=== PATIENT | male | born 1955 | race African-American/Black ===

== ENCOUNTER 2016-11-07 15:31 | Emergency (ER) | payer OTHER ==
[2016-11-07 15:37] VITALS: BP 168/115
--- NOTE | 2016-11-07 16:05 | ED Physician Documentation ---
PD HPI MALE - Stated complaint Stated Complaint: MALE - Chief complaint Chief Complaint: General - History obtained from History obtained from: Patient - History of Present Illness Timing - onset: How many days ago (3) Timing - duration: Days (3) Timing - details: Gradual onset, Still present Associated symptoms: Genital sore / lesion. No: Dysuria, Urinary frequency, Discharge, Testiclar pain, Scrotal swelling, Abdominal pain PD HPI MALE CONTRIB FACTORS: Sexually active Similar symptoms before: Has not had sx before Recently seen: Not recently seen - Additional information Additional information: 61 y/o uncircumsized male has developed a redness to the glans and he noticed this 3 days ago and he has not had this previously Review of Systems Constitutional: denies: Fever Eyes: denies: Decreased vision Ears: denies: Ear pain Nose: denies: Congestion Throat: denies: Sore throat Respiratory: denies: Dyspnea, Cough GI: denies: Abdominal Pain, Nausea, Vomiting : denies: Dysuria, Frequency, Discharge, Testicular pain, Testicular mass Skin: denies: Rash Musculoskeletal: denies: Neck pain, Back pain, Extremity pain Neurologic: denies: Generalized weakness, Focal weakness, Numbness Endocrine: denies: Polydypsia, Polyuria PD PAST MEDICAL HISTORY - Past Medical History Cardiovascular: None Respiratory: None Neuro: None Endocrine/Autoimmune: None GI: Hemorrhoids : None HEENT: Chronic vision loss Psych: None Musculoskeletal: None Derm: None - Past Surgical History Past Surgical History: No General: Colonoscopy - Present Medications Home Medications: Ambulatory Orders Medication Instructions Recorded Confirmed Clotrimazole 1 gm TP BID #45 gm 11/07/16 - Allergies Allergies/Adverse Reactions: Allergies Allergy/AdvReac Type Severity Reaction Status Date / Time No Known Drug Allergies Allergy Verified 10/21/15 09:29 - Social History Does the pt smoke?: No Smoking Status: Former smoker Does the pt drink ETOH?: Yes Does the pt have substance abuse?: No - Immunizations Immunizations are current?: Yes PD ED PE NORMAL - Vitals Vital signs reviewed: Yes (hypertensive ) - General General: Alert and oriented X 3, No acute distress, Well developed/nourished - HEENT HEENT: Atraumatic, PERRL - Respiratory Respiratory: No respiratory distress - Male Male : Other (The foreskin is easily retracted and there is erythema surrounding the base of the glans. There are no ulcerations, no significant swelling no drainage. ) - Derm Derm: Normal color, Warm and dry, No rash - Extremities Extremities: No deformity, No edema - Neuro Neuro: No motor deficit, No sensory deficit - Psych Psych: Normal mood, Normal affect Results - Vitals Vitals: Vital Signs - 24 hr 11/07/16 15:35 Temperature 35.8 C L Heart Rate 77 Respiratory 16 Rate Blood Pressure 168/115 H O2 Saturation 97 Oxygen O2 Source Room air - Labs Labs: Laboratory Tests 11/07/16 16:10 POC Whole Bld Glucose 83 PD MEDICAL DECISION MAKING - ED course Complexity details: considered differential, d/w patient ED course: looks like balanitis and we will treat and obtain a fingerstick glucose. Departure - Departure Disposition: 01 Home, Self Care Clinical Impression: Balanitis Condition: Stable Instructions: ED Balanitis Follow-Up: [facility] [Provider Group] Prescriptions: Clotrimazole 1 gm TP BID #45 gm Comments: Today in the Emergency Department your blood pressure was elevated. This can happen from the stress of the visit itself, from a current illness or circumstance or from uncontrolled hypertension. If you take blood pressure medications take your usual mediations, have your blood pressure re-checked in an appropriate setting and follow up any elevation with your primary care doctor.
== END 2016-11-07 16:36 | disposition home or self-care (01) ==
LOC: ED 15:31
DX: N48.1 Balanitis (principal); R03.0 Elevated blood-pressure reading, without diagnosis of hypertension; Z87.891 Personal history of nicotine dependence
CPT/HCPCS: 99283

== ENCOUNTER 2017-11-20 13:57 | Outpatient (CLI) | payer OTHER ==
[2017-11-20] MEDS ORDERED: GADOBUTROL 15 MMOL/15 ML VIAL ONE (14:29)
== END 2017-11-20 13:58 | disposition home or self-care (01) ==
LOC: LAB 13:57 → DI 13:58
PROVIDERS: ATTEND Internal Medicine
DX: R93.0 Abnormal findings on diagnostic imaging of skull and head, not elsewhere classified (principal)
CPT/HCPCS: 36415; 70553; 82565

== ENCOUNTER 2018-06-11 17:19 | Outpatient (CLI) | payer OTHER | END 2018-06-11 17:20 | disposition critical access hospital (66) | LOC: EMS 17:19 | PROVIDERS: ATTEND Surgery | DX: R41.82 Altered mental status, unspecified (principal) | CPT/HCPCS: A0425; A0427 ==

== ENCOUNTER 2018-06-11 17:32 | Emergency (ER) | payer OTHER ==
--- NOTE | 2018-06-11 17:45 | ED Physician Documentation ---
PD HPI SEIZURE - Stated complaint Stated Complaint: POSS STROKE - Chief complaint Chief Complaint: Neuro - History obtained from History obtained from: Patient, EMS - History of Present Illness Timing - onset: How many hours ago (1) Witnessed: Witnessed Number of seizures: Single, Unobtainable Description of seizure activity: Generalized, Tonic clonic Injury during seizure: Other (L shoulder pain) Pain level max: 6 Pain level now: 3 Associated symptoms: Unknown History of seizures: First seizure Contributing factors: No: Off meds, Out of meds, Changed meds, Low blood sugar, Head injury, Substance abuse, EtOH withdrawal, Benzo withdrawal, Overdose, Fever, Sleep deprivation Similar symptoms before: Has not had sx before Recently seen: Not recently seen - Additional information Additional information: also trouble moving L arm and leg since the event, seems to be improving now. Review of Systems Ten Systems: 10 systems reviewed and negative Constitutional: denies: Fever, Chills Ears: denies: Ear pain Nose: denies: Rhinorrhea / runny nose, Congestion Cardiac: denies: Chest pain / pressure Respiratory: denies: Cough GI: denies: Abdominal Pain, Nausea, Vomiting, Diarrhea Skin: denies: Rash Musculoskeletal: denies: Neck pain, Back pain Neurologic: denies: Headache PD PAST MEDICAL HISTORY - Past Medical History Cardiovascular: None Respiratory: None Endocrine/Autoimmune: None GI: Hemorrhoids : None HEENT: Chronic vision loss Psych: None Musculoskeletal: None Derm: None - Past Surgical History Past Surgical History: No General: Colonoscopy - Present Medications Home Medications: Ambulatory Orders Medication Instructions Recorded Confirmed Hydrocodone/Acetaminophen 1 - 2 each PO Q6H PRN #14 tablet 06/11/18 [Hydrocodon-Acetaminophen 5-325] Levetiracetam [Keppra] 500 mg PO BID #60 tablet 06/11/18 - Allergies Allergies/Adverse Reactions: Allergies Allergy/AdvReac Type Severity Reaction Status Date / Time No Known Drug Allergies Allergy Verified 06/11/18 17:38 - Social History Does the pt smoke?: No Smoking Status: Former smoker Does the pt drink ETOH?: Yes Does the pt have substance abuse?: No - Immunizations Immunizations are current?: Yes PD ED PE NORMAL - Vitals Vital signs reviewed: Yes - General General: Alert and oriented X 3, No acute distress, Well developed/nourished - HEENT HEENT: PERRL, Moist mucous membranes - Neck Neck: Supple, no meningeal sign, No bony TTP - Cardiac Cardiac: RRR, Strong equal pulses - Respiratory Respiratory: No respiratory distress, Clear bilaterally - Abdomen Abdomen: Soft, Non tender, Non distended - Back Back: No spinal TTP - Derm Derm: Warm and dry - Extremities Extremities: Other (Tender palpation over the left shoulder. No gross deformity. Neurovascularly intact) - Neuro Neuro: Alert and oriented X 3, sanitary chemist 2-12 intact, No motor deficit, No sensory deficit, Normal speech Eye Opening: Spontaneous Motor: Obeys Commands Verbal: Oriented GCS Score: 15 - Psych Psych: Normal mood, Normal affect Results - Vitals Vitals: Vital Signs - 24 hr 06/11/18 06/11/18 06/11/18 17:32 18:05 19:24 Temperature 36.4 C L Heart Rate 107 H 105 H 106 H Respiratory 18 27 H 18 Rate Blood Pressure 118/76 119/74 136/76 H O2 Saturation 93 94 94 06/11/18 06/11/18 06/11/18 20:58 21:00 21:29 Temperature Heart Rate 115 H 111 H 108 H Respiratory 16 16 8 L Rate Blood Pressure 129/76 129/76 115/62 O2 Saturation 96 96 92 06/11/18 06/11/18 06/11/18 21:37 21:38 22:25 Temperature Heart Rate 110 H 129 H Respiratory 17 18 Rate Blood Pressure 104/76 150/93 H O2 Saturation 98 100 96 06/11/18 22:56 Temperature Heart Rate 108 H Respiratory Rate Blood Pressure O2 Saturation 92 Oxygen O2 Source Room air Oxygen Flow Rate 2 - Labs Labs: Laboratory Tests 06/11/18 06/11/18 17:46 17:46 WBC 9.2 RBC 5.19 Hgb 14.3 Hct 44.7 MCV 86.0 MCH 27.6 MCHC 32.0 RDW 14.4 Plt Count 234 MPV 8.4 Neut # (Auto) Not Reportable Lymph # (Auto) Not Reportable [place] # (Auto) Not Reportable Eos # (Auto) Not Reportable Baso # (Auto) Not Reportable Absolute Nucleated RBC Not Reportable Total Counted 100 Band Neuts % (Manual) 3 Abnorm Lymph % (Manual) 0 Nucleated RBC % Not Reportable Neutrophils # (Manual) 4.0 Lymphocytes # (Manual) 4.6 H Monocytes # (Manual) 0.4 Eosinophils # (Manual) 0.3 Basophils # (Manual) 0.0 Differential Comment MANUAL DIFFERENTIAL Manual Slide Review Indicated WBC Morphology NORMAL APPEARANCE Platelet Estimate NORMAL (130-450,000) Platelet Morphology NORMAL APPEARANCE RBC Morph Micro Appear NORMAL APPEARANCE Sodium 138 Potassium 3.6 Chloride 101 Carbon Dioxide 23 Anion Gap 14.0 H BUN 13 Creatinine 1.2 Estimated GFR (MDRD) 75 L Glucose 127 H Calcium 9.1 Total Bilirubin 0.4 AST 48 H ALT 31 Alkaline Phosphatase 79 Total Protein 7.2 Albumin 3.8 Globulin 3.4 Albumin/Globulin Ratio 1.1 Lipase 31 Salicylates < 6.0 Acetaminophen < 10 L Ethyl Alcohol < 5.0 - Rads (name of study) Head CT Radiology: Prelim report reviewed, EMP read contemporaneously, See rad report (Chronic appearing encephalomalacia, possibly representing old infarct in the right parietal lobe. 2. Negative for hemorrhage, localizing mass-effect or edema. ) Left shoulder x-ray Radiology: Prelim report reviewed, EMP read contemporaneously, See rad report (. Probable posterior shoulder dislocation which can be confirmed with axillary view. 2. Comminuted impacted fracture medial left humerus head and possible posterior glenoid fracture. ) Left shoulder CT Radiology: Prelim report reviewed, EMP read contemporaneously, See rad report (Posterior subluxation of the humerus head with the severe comminuted impacted fracture medial humerus neck and anterior and medial humerus head from impacted posterior glenoid. Enter 1.6 cm displacement of medial humerus neck fracture fragments. 2. Comminuted fracture is noted of the posterior inferior glenoid involving a small portion of the articular surface. Multiple fracture fragments axillary recess. ) Left shoulder x-ray postreduction Radiology: Prelim report reviewed, EMP read contemporaneously, See rad report (Glenohumeral articulation appears normal on the provided views. The comminuted fractures of the humeral head and glenoid are less well visualized on this study. The acromioclavicular joint is intact. Soft tissue swelling about the left shoulder. ) Procedures - Reduction Body part reduced: Left, Shoulder Fracture or dislocation: Fracture dislocation Anesthesia: Hematoma block, Conscious sedation (propofol) Reduction aftercare: NV intact, Xray confirms reduction, Alignment improved, Sling, Patient tolerated well - Procedural sedation Sedation prep: Informed consent, Time out completed, Last meal (6hrs BOOTH USHER), PE performed, AHA 1 - healthy, IV O2 monitor, ET CO2 monitor, RT present Sedation medications: propofol, given by MD Patient status during sedation: Responds to tactile, Maintained airway, Hypoxia Sedation recovery: Recovered uneventfully, Back to baseline PD MEDICAL DECISION MAKING - ED course Complexity details: reviewed results, re-evaluated patient, considered differential, d/w patient, d/w b2b sales consultant ED course: 63-year-old male with a seizure today. Upon further history he states this is actually his second seizure, the first occurred last year. He was supposed to have an MRI in November of last year but never followed through. He has not been on any antiepileptic medications in the past. Has not seen a neurologist. I discussed the case with Dr. Benoit, orthopedics on-call who came and evaluated the patient and reduce the shoulder. I provided sedation for this. We then spoke with Dr. Jones at [facility], orthopedics who recommends follow-up pain clinic locally for repeat evaluation. Does not see any indication for transfer. Then discussed the case with Dr. Chandler, neurology at [facility] who recommends Keppra or Dilantin depending on the patient's preference for his seizures. Pain well controlled in the emergency department. Shoulder reduced. Patient counseled regarding signs and symptoms for which I believe and urgent re-evaluation would be necessary. Patient with good understanding of and agreement to plan and is comfortable going home at this time This document was made in part using voice recognition software. While efforts are made to proofread this document, sound alike and grammatical errors may occur. Departure - Departure Disposition: 01 Home, Self Care Clinical Impression: Recurrent seizures Posterior dislocation of shoulder joint Qualifiers: Encounter type: initial encounter Laterality: left Qualified Code(s): S43.022A - Posterior subluxation of left humerus, initial encounter Humeral head fracture Qualifiers: Encounter type: initial encounter Fracture type: closed Laterality: left Qualified Code(s): S42.292A - Other displaced fracture of upper end of left humerus, initial encounter for closed fracture Condition: Stable Instructions: ED Fx Upper Ext, ED Seizure Recurrent Follow-Up: Flaquito Pacheco MD [Primary Care Provider] - Within 1 week Latrice Benoit MD [Provider Admit Priv/Credential] - Within 1 week Prescriptions: Hydrocodone/Acetaminophen [Hydrocodon-Acetaminophen 5-325] 1 - 2 each PO Q6H PRN #14 tablet PRN Reason: pain Levetiracetam [Keppra] 500 mg PO BID #60 tablet Comments: Continue the Keppra as prescribed. Is important to follow-up with Dr. Pacheco for further evaluation and care. Will likely need an MRI and a neurology referral. I spoke with neurology at [facility]. I also spoke with orthopedics there. He will follow-up with Dr. Benoit in the orthopedic clinic for your shoulder. Do not drive until released by your doctor. Do not take baths, stick to showers. Do not drink alcohol or drive while on narcotic pain medicine. Note that many narcotic pain relievers also contain tylenol/acetaminophen. Please ensure that your total dose of acetaminophen from all sources does not exceed 3 grams (3000mg) per day. You may constipated on this medication, take a stool softener such as "Colace" twice a day while you are on it. Also recommend a [id number] laxative such as senna or MiraLAX any day that you do not have a bowel movement. If you received narcotic pain medication in the emergency department, do not drive or operate machinery for the next 24 hours. Discharge Date/Time: 06/11/18 23:15
[2018-06-11 17:49] LABS: BASOPHILS % (AUTO) 0.5 %; EOSINOPHILS % (AUTO) 2.9 %; HGB - HEMOGLOBIN 14.3 g/dL (14.0-18.0); LYMPHOCYTES % (AUTO) 39.1 %; MEAN CORPUSCULAR HEMOGLOBIN 27.6 pg (27.0-31.0); MEAN PLATELET VOLUME 8.4 fL (7.4-11.4); MONOCYTES % (AUTO) 6.4 %; NEUTROPHILS % (AUTO) 51.1 %; PLT - PLATELET COUNT 234 10^3/uL (130-450); RED BLOOD COUNT 5.19 10^6/uL (4.70-6.10); RED CELL DISTRIBUTION WIDTH 14.4 % (12.0-15.0); WHITE BLOOD COUNT 9.2 x10^3/uL (4.8-10.8)
[2018-06-11 17:53] LABS: ABNORMAL LYMPHS % (MANUAL) 0 %
[2018-06-11] MEDS ORDERED: HYDROmorphone 1 MG/ML CARPUJECT IVP STA ×2 (17:58→19:09)
--- NOTE | 2018-06-11 17:59 | CT Report ---
Reason: new onset seizure, L sided weakness. Procedure Date: 06/11/2018 Accession Number: [id number] / [id number] Procedure: CT - Head W/O Stroke Protocol CPT Code: FULL RESULT: EXAM: CT HEAD EXAM DATE: 06/11/2018 05:54 PM. CLINICAL HISTORY: New onset seizure, L sided weakness. COMPARISON: None. TECHNIQUE: Multiaxial CT images were obtained from the foramen magnum to the vertex. Reformats: Sagittal and coronal. IV contrast: None. In accordance with CT protocol optimization, one or more of the following dose reduction techniques were utilized for this exam: automated exposure control, adjustment of mA and/or KV based on patient size, or use of iterative reconstructive technique. FINDINGS: Parenchyma: There is a moderate sized area of chronic encephalomalacia in the right parietal lobe. More posteriorly, there is a small area of cortical hypodensity in the right parietal occipital lobe. Negative for intracranial hemorrhage. No midline shift or mass-effect. Extraaxial Spaces: No subdural or epidural collections identified. Ventricles: Normal in size and position. Sinuses and Orbits: There is mucosal thickening in the right frontal sinus. Other sinuses appear clear. Bones: No evidence of fracture or calvarial defect. Other: None. IMPRESSION: 1. 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 2. Negative for hemorrhage, localizing mass-effect or edema. RADIA The call report notification system was initiated by Dr. Ronaldo Reddy at 05:58 PM hrs on 06/11/2018.
[2018-06-11 18:04] LABS: ACETAMINOPHEN < 10 ug/mL (10-30); ALBUMIN 3.8 g/dL (3.2-5.5); ALBUMIN/GLOBULIN RATIO 1.1 (1.0-2.2); ALKALINE PHOSPHATASE 79 IU/L (42-121); ALT ALANINE AMINOTRANSFERASE 31 IU/L (10-60); AST ASPARTATE AMINOTRANSFERASE 48 IU/L (10-42); BILIRUBIN,TOTAL 0.4 mg/dL (0.2-1.0); BUN - BLOOD UREA NITROGEN 13 mg/dL (6-20); CALCIUM 9.1 mg/dL (8.5-10.3); CARBON DIOXIDE - CO2 23 mmol/L (21-32); CHLORIDE 101 mmol/L (101-111); CREATININE 1.2 mg/dL (0.6-1.2); GFR - MDRD 75 (>89); GLUCOSE 127 mg/dL (70-100); LIPASE 31 U/L (22-51); SALICYLATE < 6.0 mg/dL; SODIUM 138 mmol/L (135-145); TOTAL PROTEIN 7.2 g/dL (6.7-8.2)
[2018-06-11 18:07] LABS: BAND NEUTROPHILS % (MANUAL) 3 %; DIFFERENTIAL COMMENT MANUAL DIFFERENTIAL; EOSINOPHILS # (MANUAL) 0.3 10^3/uL (0-0.7); LYMPHOCYTES # (MANUAL) 4.6 10^3/uL (1.5-3.5); LYMPHOCYTES % (MANUAL) 50 %; MONOCYTES # (MANUAL) 0.4 10^3/uL (0.0-1.0); NEUTROPHILS % (MANUAL) 40 %; PLATELET ESTIMATE, MANUAL NORMAL (130-450,000) (NORMAL); PLATELET MORPHOLOGY NORMAL APPEARANCE (NORMAL); RBC MORPHOLOGY (MULTIPLE) NORMAL APPEARANCE (NORMAL)
--- NOTE | 2018-06-11 19:07 | XRAY Report ---
Reason: seizure, L shoulder pain Procedure Date: 06/11/2018 Accession Number: [id number] / [id number] Procedure: XR - Shoulder 3 View LT CPT Code: FULL RESULT: EXAM: LEFT SHOULDER RADIOGRAPHY EXAM DATE: 06/11/2018 06:35 PM. CLINICAL HISTORY: Seizure, L shoulder pain. COMPARISON: None. TECHNIQUE: 3 views. FINDINGS: Bones: Comminuted fracture medial left humerus head. Possible fracture posterior glenoid. Joints: Probable posterior shoulder dislocation. Acromioclavicular joint is within normal limits. Soft tissues: The visualized hemithorax is unremarkable. No soft tissue swelling. IMPRESSION: 1. Probable posterior shoulder dislocation which can be confirmed with axillary view. 2. Comminuted impacted fracture medial left humerus head and possible posterior glenoid fracture. RADIA
[2018-06-11] MEDS ORDERED: BUPIVACAINE 0.5% PF 10 ML VIAL SUBQ STA (20:35)
[2018-06-11] MEDS ORDERED: PROPOFOL 200 MG/20 ML VIAL IVP STA (20:36)
[2018-06-11] MEDS ORDERED: LIDOCAINE 2% 10 ML MDV ONE ×2 (20:39→20:48)
--- NOTE | 2018-06-11 20:49 | CT Report ---
Reason: L shoulder fracture/dislocation Procedure Date: 06/11/2018 Accession Number: [id number] / [id number] Procedure: CT - Upper Extremity Left W/O CPT Code: FULL RESULT: EXAM: LEFT SHOULDER CT WITHOUT CONTRAST EXAM DATE: 06/11/2018 08:13 PM. CLINICAL HISTORY: L shoulder fracture/dislocation. COMPARISON: SHOULDER 3 VIEW LT 06/11/2018 6:06 PM. TECHNIQUE: Thin-section axial images were acquired of the left shoulder without contrast. Post-processing: Coronal and sagittal reformats. Other: None. In accordance with CT protocol optimization, one or more of the following dose reduction techniques were utilized for this exam: automated exposure control, adjustment of mA and/or KV based on patient size, or use of iterative reconstructive technique. FINDINGS: Bones: Comminuted impacted fracture medial humerus head and medial proximal humerus surgical neck of the anterior 1.6 cm displacement of fracture fragments. Associated comminuted fracture small size of the posterior inferior glenoid or reverse [place] lesion. Multiple fracture fragments axillary recess. Joints: Normal. No large elbow effusion. No calcified loose bodies. Musculature: Normal. No fatty atrophy. Other: None. IMPRESSION: 1. Posterior subluxation of the humerus head with the severe comminuted impacted fracture medial humerus neck and anterior and medial humerus head from impacted posterior glenoid. Enter 1.6 cm displacement of medial humerus neck fracture fragments. 2. Comminuted fracture is noted of the posterior inferior glenoid involving a small portion of the articular surface. Multiple fracture fragments axillary recess. RADIA
[2018-06-11] MEDS ORDERED: levETIRAcetam 250 MG TABLET PO STA (22:17)
--- NOTE | 2018-06-11 22:25 | XRAY Report ---
Reason: s/p reduction Procedure Date: 06/11/2018 Accession Number: [id number] / [id number] Procedure: XR - Shoulder 2 View LT CPT Code: FULL RESULT: EXAM: LEFT SHOULDER RADIOGRAPHY EXAM DATE: 06/11/2018 09:49 PM. CLINICAL HISTORY: S/p reduction. COMPARISON: SHOULDER 3 VIEW LT 06/11/2018 6:06 PM UPPER EXTREMITY LEFT W/O 06/11/2018 7:59 PM. TECHNIQUE: 2 views. FINDINGS: Glenohumeral articulation appears normal on the provided views. The comminuted fractures of the humeral head and glenoid are less well visualized on this study. The acromioclavicular joint is intact. Soft tissue swelling about the left shoulder. IMPRESSION: As above. RADIA
[2018-06-11 22:28] VITALS: BP 150/93
--- NOTE | 2018-06-12 11:46 | CONSULTATION NOTE ---
DATE OF SERVICE: 06/11/2018 Physician: Latrice Benoit MD EMERGENCY ROOM ORTHOPEDIC CONSULTATION AND PROCEDURE NOTE REQUESTING PHYSICIAN: Lenard Salgado MD REASON FOR CONSULTATION: Left shoulder fracture dislocation. HISTORY OF PRESENT ILLNESS: Patient is a 63-year-old male with a brain disorder having caused a prior seizure about a year ago and then a repeat seizure on 06/11/2018, leading to the patient having a shoulder injury, fracture dislocation. He was transported from [place] to the emergency room and diagnosed by x-ray. The patient's prior medical history, allergies, prior surgeries are all documented in his emergency room record. The patient's pertinent orthopedic review of systems is that he has not had shoulder problems or pain, has never had shoulder surgery, with his prior seizure he did not have orthopedic problems. He is right-handed. His examination reveals a large man about 6 feet 2 or 3 inches and about 300 pounds. He does not grossly reveal his shoulder to be dislocated on exam; however, he is holding it at his side somewhat internally rotated and has pain and spasm if he attempts to move his shoulder. He does not have any neurologic complaints in his hand. His level of consciousness appeared normal, and he was alert and oriented, did not appear to be postictal even though he was, and movement of his shoulder was generally painful with a fullness posteriorly in the shoulder, but he is of such large size it was hard to discern that his shoulder was dislocated. His neuro exam was normal. X-rays were reviewed, and the patient had a severe fracture dislocation of his shoulder, with the majority of his humeral head dislocated posteriorly with a large indentation, and fracture in the humeral head representing about 40% of the head and some comminution at the inferior glenoid neck and in the neck of the humerus. IMPRESSION: The patient had a locked posterior dislocation that would require reduction with significant humeral head impaction fracture. DESCRIPTION OF PROCEDURE: The patient was consented for treatment and treatment was discussed with him. It was recommended he undergo a closed reduction. This was undertaken, infiltrating into his shoulder with a combination of Marcaine and lidocaine, approximately 16-18 mL total. This was injected anteriorly with a spinal needle into the shoulder, and it did yield relief of pain within 5 minutes. An initial attempt of traction and lateral abduction force on the shoulder did not affect a reduction with the patient awake, even though he was very cooperative. Therefore under Lenard Salgado's direction, a propofol conscious sedation anesthetic was given and a closed reduction maneuver performed once again with traction, arm in neutral rotation, with lateral pressure that allowed reduction of the shoulder to occur with the arm position then in external rotation and confirming reduction by exam and X-ray, and then the arm was splinted in a shoulder pillow splint with the arm held at the side, but in neutral to slight external rotation. The patient post reduction awakened and was in improved levels of pain, did not have neurologic deficit in his arm, and with time was able to stand with his splint in place and actually walk a little bit and not exhibit dizziness or any other problem. At this time, a conversation was had with the orthopedic program at [facility], and they declined transfer, stating that the patient would need to have neurologic consultation and stability of his brain seizure disorder before they would intervene and that he would have to remain in his abduction pillow until then, and even after explaining this may take weeks or a month, this did not deter their judgment, and therefore patient will remain in his pillow. He will be given appropriate Dilantin loading doses and will follow up in orthopedic clinic in 5 days. The patient is strictly told to maintain an abduction external rotation position with his brace and that he is at risk for redislocation, and he understands that he has done significant shoulder damage. TD: 06/12/2018 11:18 MTDD
== END 2018-06-11 23:15 | disposition home or self-care (01) ==
LOC: EDUNIT# → ED 17:32
DX: G40.909 Epilepsy, unspecified, not intractable, without status epilepticus (principal); S43.022A Posterior subluxation of left humerus, initial encounter; S42.292A Other displaced fracture of upper end of left humerus, initial encounter for closed fracture; S42.462A Displaced fracture of medial condyle of left humerus, initial encounter for closed fracture; S42.142A Displaced fracture of glenoid cavity of scapula, left shoulder, initial encounter for closed fracture; Z87.891 Personal history of nicotine dependence; X58.XXXA Exposure to other specified factors, initial encounter; Y93.9 Activity, unspecified; Y92.9 Unspecified place or not applicable
CPT/HCPCS: 23650; 36415; 70450; 73030; 73200; 80053; 80307; 80320; 80329; 83690; 85025; 94770; 96374; 96376; 99152; 99284; 99285; A9270; J1170

== ENCOUNTER 2018-06-15 18:37 | Emergency (ER) | payer OTHER ==
[2018-06-15 19:34] LABS: BASOPHILS # (AUTO) 0.1 10^3/uL (0.0-0.1); BASOPHILS % (AUTO) 1.3 %; EOSINOPHILS # (AUTO) 0.4 10^3/uL (0.0-0.7); EOSINOPHILS % (AUTO) 5.9 %; HGB - HEMOGLOBIN 13.3 g/dL (14.0-18.0); LYMPHOCYTES # (AUTO) 1.7 10^3/uL (1.5-3.5); LYMPHOCYTES % (AUTO) 27.9 %; MEAN CORPUSCULAR HEMOGLOBIN 27.1 pg (27.0-31.0); MEAN CORPUSCULAR HGB CONC 31.6 g/dL (32.0-36.0); MEAN CORPUSCULAR VOLUME 85.7 fL (80.0-94.0); MONOCYTES # (AUTO) 0.6 10^3/uL (0.0-1.0); MONOCYTES % (AUTO) 10.3 %; NEUTROPHILS # (AUTO) 3.3 10^3/uL (1.5-6.6); NEUTROPHILS % (AUTO) 54.6 %; PLT - PLATELET COUNT 226 10^3/uL (130-450); RED BLOOD COUNT 4.91 10^6/uL (4.70-6.10); RED CELL DISTRIBUTION WIDTH 14.1 % (12.0-15.0); WHITE BLOOD COUNT 6.1 x10^3/uL (4.8-10.8)
[2018-06-15 20:17] LABS: MUDS CUTOFF CONCENTRATIONS CUTOFF CONC BELOW:
[2018-06-15 20:28] LABS: AMPHETAMINE SCREEN,URINE NEGATIVE (NEGATIVE); BENZODIAZEPINES SCREEN, URINE NEGATIVE (NEGATIVE); COCAINE SCREEN URINE NEGATIVE (NEGATIVE); METHADONE SCREEN, URINE NEGATIVE (NEGATIVE); METHAMPHETAMINES SCREEN, URINE NEGATIVE (NEGATIVE); OPIATE SCREEN, URINE POSITIVE (NEGATIVE); OXYCODONE SCREEN, URINE NEGATIVE (NEGATIVE); PROPOXYPHENE SCREEN, URINE NEGATIVE (NEGATIVE); TRICYCLIC ANTIDEPRESSANT,URINE NEGATIVE (NEGATIVE)
[2018-06-15 20:32] LABS: INR 1.1 (0.8-1.2); PT - PROTHROMBIN TIME 12.7 secs (9.9-12.6)
--- NOTE | 2018-06-15 20:32 | Ultrasound Report ---
Reason: elevated LFTs Procedure Date: 06/15/2018 Accession Number: [id number] / [id number] Procedure: US - Abdomen Limited CPT Code: FULL RESULT: EXAM: ABDOMEN ULTRASOUND LIMITED, RUQ EXAM DATE: 06/15/2018 07:59 PM. CLINICAL HISTORY: Elevated LFTs. COMPARISON: None. TECHNIQUE: Real-time scanning was performed with static images obtained. FINDINGS: Exam is technically difficult due to patient body habitus, bowel gas, and echogenic liver. Liver: Diffusely echogenic. Normal size. 17.1 cm. Main portal vein flow: Hepatopetal. Gallbladder: Normal allowing for mild contraction. Patient last ate 3-4 hours ago. No stones, wall thickening, or sonographic Jean-Baptiste's sign. Biliary System: CBD measures 4 mm. No intrahepatic or extrahepatic ductal dilatation in visualized portions. Other: The visualized portions of the pancreatic body within normal limits. Right kidney within normal limits and measures 12.4 cm. There is a 17 x 13 x 15 mm cyst in the interpolar region of the kidney. IMPRESSION: 1.Moderate hepatic steatosis. 2. No cholelithiasis or cholecystitis. RADIA
[2018-06-15 20:43] LABS: ACETAMINOPHEN < 10 ug/mL (10-30); ALKALINE PHOSPHATASE 67 IU/L (42-121); ALT ALANINE AMINOTRANSFERASE 86 IU/L (10-60); AST ASPARTATE AMINOTRANSFERASE 204 IU/L (10-42); BILIRUBIN,TOTAL 0.9 mg/dL (0.2-1.0); BUN - BLOOD UREA NITROGEN 20 mg/dL (6-20); CALCIUM 9.2 mg/dL (8.5-10.3); CARBON DIOXIDE - CO2 25 mmol/L (21-32); CHLORIDE 104 mmol/L (101-111); GFR - MDRD 92 (>89); GLUCOSE 109 mg/dL (70-100); LIPASE 34 U/L (22-51); SODIUM 140 mmol/L (135-145)
[2018-06-15] MEDS ORDERED: oxyCODONE 5 MG TABLET PO STA (20:59)
--- NOTE | 2018-06-15 21:02 | ED Physician Documentation ---
History of Present Illness - Stated complaint Stated Complaint: SZ/LOWER BACK PX - Chief complaint Chief Complaint: Abd Pain - Additonal information Additional information: 63-year-old male was sent to the emergency department by a physician at [facility] for a ultrasound of his liver. The patient had routine outpatient lab work this week which showed slightly elevated liver function test and the patient was directed emergently to the emergency department for a ultrasound of his gallbladder and liver. The patient denies any abdominal discomfort or pain. The patient was recently started on Keppra secondary to a seizure he endured. The patient has no acute complaints or symptoms presently. No other associated symptoms. Review of Systems Constitutional: denies: Fever, Fatigue Eyes: denies: Discharge Ears: denies: Ear pain Nose: denies: Congestion Throat: denies: Sore throat Cardiac: denies: Chest pain / pressure GI: denies: Abdominal Pain, Nausea, Vomiting : denies: Dysuria Musculoskeletal: denies: Neck pain Neurologic: denies: Generalized weakness PD PAST MEDICAL HISTORY - Past Medical History Cardiovascular: None Respiratory: None Endocrine/Autoimmune: None GI: Hemorrhoids : None HEENT: Chronic vision loss Psych: None Musculoskeletal: None Derm: None - Past Surgical History Past Surgical History: No General: Colonoscopy - Present Medications Home Medications: Ambulatory Orders Medication Instructions Recorded Confirmed Hydrocodone/Acetaminophen 1 - 2 each PO Q6H PRN #14 tablet 06/11/18 06/15/18 [Hydrocodon-Acetaminophen 5-325] Levetiracetam [Keppra] 500 mg PO BID #60 tablet 06/11/18 06/15/18 oxyCODONE [Roxicodone] 5 mg PO Q6H PRN #20 tablet 06/15/18 - Allergies Allergies/Adverse Reactions: Allergies Allergy/AdvReac Type Severity Reaction Status Date / Time No Known Drug Allergies Allergy Verified 06/15/18 18:47 - Social History Does the pt smoke?: No Smoking Status: Never smoker Does the pt drink ETOH?: Yes Does the pt have substance abuse?: No - Immunizations Immunizations are current?: Yes PD ED PE NORMAL - General General: Alert and oriented X 3, No acute distress - HEENT HEENT: Atraumatic, PERRL, EOMI, Ears normal - Cardiac Cardiac: RRR, Strong equal pulses - Respiratory Respiratory: No respiratory distress - Abdomen Abdomen: Soft, Non tender, Non distended - Derm Derm: Normal color - Extremities Extremities: No deformity, Normal ROM s pain, No edema - Neuro Neuro: Alert and oriented X 3, Normal speech - Psych Psych: Normal affect Results - Vitals Vitals: Vital Signs - 24 hr 06/15/18 06/15/18 18:44 19:32 Temperature 36 C L Heart Rate 110 H Respiratory 20 17 Rate Blood Pressure 174/86 H O2 Saturation 96 Oxygen O2 Source Room air - Labs Labs: Laboratory Tests 06/15/18 06/15/18 06/15/18 19:24 20:04 20:15 WBC 6.1 RBC 4.91 Hgb 13.3 L Hct 42.1 MCV 85.7 MCH 27.1 MCHC 31.6 L RDW 14.1 Plt Count 226 MPV 9.0 Neut # (Auto) 3.3 Lymph # (Auto) 1.7 Bell # (Auto) 0.6 Eos # (Auto) 0.4 Baso # (Auto) 0.1 Absolute Nucleated RBC 0.00 Nucleated RBC % 0.1 PT 12.7 H INR 1.1 Sodium Potassium Chloride Carbon Dioxide Anion Gap BUN Creatinine Estimated GFR (MDRD) Glucose Calcium Total Bilirubin AST ALT Alkaline Phosphatase Total Protein Albumin Globulin Albumin/Globulin Ratio Lipase Urine Opiates Screen POSITIVE H Ur Oxycodone Screen NEGATIVE Urine Methadone Screen NEGATIVE Ur Propoxyphene Screen NEGATIVE Acetaminophen Ur Barbiturates Screen NEGATIVE Ur Tricyclics Screen NEGATIVE Ur Phencyclidine Scrn NEGATIVE Ur Amphetamine Screen NEGATIVE U Methamphetamines Scrn NEGATIVE U Benzodiazepines Scrn NEGATIVE Urine Cocaine Screen NEGATIVE U Cannabinoids Screen NEGATIVE 06/15/18 20:15 WBC RBC Hgb Hct MCV MCH MCHC RDW Plt Count MPV Neut # (Auto) Lymph # (Auto) Bell # (Auto) Eos # (Auto) Baso # (Auto) Absolute Nucleated RBC Nucleated RBC % PT INR Sodium 140 Potassium 3.7 Chloride 104 Carbon Dioxide 25 Anion Gap 11.0 BUN 20 Creatinine 1.0 Estimated GFR (MDRD) 92 Glucose 109 H Calcium 9.2 Total Bilirubin 0.9 AST 204 H ALT 86 H Alkaline Phosphatase 67 Total Protein 8.0 Albumin 4.0 Globulin 4.0 Albumin/Globulin Ratio 1.0 Lipase 34 Urine Opiates Screen Ur Oxycodone Screen Urine Methadone Screen Ur Propoxyphene Screen Acetaminophen < 10 L Ur Barbiturates Screen Ur Tricyclics Screen Ur Phencyclidine Scrn Ur Amphetamine Screen U Methamphetamines Scrn U Benzodiazepines Scrn Urine Cocaine Screen U Cannabinoids Screen - Rads (name of study) US abd Radiology: Final report received, See rad report (IMPRESSION: 1.Moderate hepatic steatosis 2. No cholelithiasis or cholecystitis. ) PD MEDICAL DECISION MAKING - ED course ED course: The patient has no active symptoms presently and his liver function test are very mildly elevated. The patient's ultrasound does not show any thing that would necessitate admission to the hospital, transfer or urgent consultation. Presently the patient appears appropriate for discharge and ongoing outpatient management. I recommended close follow-up with primary care for ongoing evaluation of his liver function test. The elevated liver function test may be secondary toThe new medication. Discussed warning signs and recommended returning to the emergency department for any worsening or any concerns Departure - Departure Disposition: 01 Home, Self Care Clinical Impression: Elevated liver enzymes Condition: Good Prescriptions: oxyCODONE [Roxicodone] 5 mg PO Q6H PRN #20 tablet PRN Reason: Pain Comments: Please follow-up with your primary care physician, please asked them to repeat your liver function test and to follow these results. If they do not improve you may need further workup and evaluation Please return to the emergency department for any worsening or any concerns
[2018-06-15 21:15] VITALS: BP 155/95
== END 2018-06-15 21:14 | disposition home or self-care (01) ==
LOC: ED 18:37
DX: R74.8 Abnormal levels of other serum enzymes (principal)
CPT/HCPCS: 36415; 76705; 80053; 80306; 80307; 83690; 85025; 85610; 99283; A9270